=== PATIENT | male | born 1985 | race Caucasian/White ===

== ENCOUNTER 2017-03-14 13:04 | Emergency (ER) | payer BC ==
[2017-03-14 13:15] VITALS: BP 144/82; PULSE 85; TEMP 98; BMI 31.6
--- NOTE | 2017-03-14 13:55 | PDOC ---
History of Present Illness - General Chief Complaint: Pain Stated Complaint: RT THIGH PAIN Time Seen by Provider: 03/14/17 13:27 History Source: Patient Exam Limitations: No Limitations - History of Present Illness Initial Comments: 03/14/17 13:49 31 year old male with surgical history of inguinal hernia repair x 2, appendectomy and no medical history, present with pain to right groin radiating down right leg x 2 days. Patient admits to heavy lifting at work 3 days ago. States since then pain gradually getting worse. Denies bowel or bladder dysfunction. Occurred: reports: other (2 days) Severity: reports: moderate Pain Location: reports: lower extremity, pelvis Method of Injury: Yes: other (heavy lifting) Modifying Factors: improves with: immobilization Loss of Consciousness: no loss of consciousness Associated Symptoms (Fall): trouble walking Past History - Travel Traveled outside of the country in the last 30 days: No Close contact w/someone who was outside of country & ill: No - Past Medical History Allergies/Adverse Reactions: Allergies Allergy/AdvReac Type Severity Reaction Status Date / Time No Known Allergies Allergy Verified 03/14/17 13:11 Home Medications: Ambulatory Orders NK [No Known Home Medication] 03/14/17 Other medical history: DENIES. - Surgical History Abdominal Surgery: Yes (HERNIA) Appendectomy: Yes (06/2016) - Psycho/Social/Smoking Cessation Hx Suicidal Ideation: No Smoking History: Never smoked Trauma Specific PMHX - Complaint Specific PMHX Arthritis: No Back Injury: No Neck Injury: No Hx Sacro Iliac Joint Dysfunction: No Review of Systems - Review of Systems Able to Perform ROS?: Yes Is the patient limited Tanzanian proficient: No Constitutional: No: Chills, Diaphoresis, Fever, Night Sweats, Weakness, Weight Stable HEENTM: No: Double Vision, Ear Discharge, Nose Congestion, Hearing Loss Respiratory: No: Cough, Orthopnea, Shortness of Breath, Wheezing, Productive cough Cardiac (ROS): No: Chest Pain, Lightheadedness, Palpitations ABD/GI: No: Abdominal Distended, Poor Appetite, Indigestion Musculoskeletal: Yes: Muscle Pain, Joint Stiffness. No: Joint Pain Integumentary: No: See HPI, Bruising, Erythema Neurological: Yes: Numbness, Unsteady Gait. No: Headache Psychiatric: No: Frequent Crying *Physical Exam - Vital Signs Last Vital Signs Temp Pulse Resp BP Pulse Ox 98 F 85 21 144/82 100 03/14/17 13:11 03/14/17 13:11 03/14/17 13:11 03/14/17 13:11 03/14/17 13:11 - Physical Exam General Appearance: Yes: Nourished, Appropriately Dressed. No: Apparent Distress HEENT: positive: EOMI, MESHA, TMs Normal, Pharynx Normal Neck: negative: Lymphadenopathy (R), Lymphadenopathy (L) Respiratory/Chest: positive: Lungs Clear, Normal Breath Sounds. negative: Chest Tender Cardiovascular: positive: Regular Rhythm, Regular Rate, S1, S2 Gastrointestinal/Abdominal: positive: Normal Bowel Sounds, Other (tenderness with palpation to right groin area, no palpable node ) Male Genitalia: positive: inguinal hernia (scar from repair healed). negative: discharge Extremity: positive: Normal Capillary Refill Integumentary: positive: Normal Color Neurologic: positive: flap maker II-XII NML intact, Fully Oriented, Alert Medical Decision Making - Medical Decision Making 03/14/17 13:54 31 year old male with no medical history has surgical history of inguinal repair x 2 and appendectomy, has pain in right groin radiating into right leg. analgesia ordered urinalysis 03/14/17 14:55 signed out to YARON Maya
[2017-03-14] MEDS ORDERED: KETOROLAC TROMETHAMINE 30 MG/1 ML VIAL IM ONE (13:56)
[2017-03-14] MEDS ORDERED: KETOROLAC TROMETHAMINE 30 MG/1 ML VIAL ONE (14:00)
[2017-03-14 14:40] LABS: URINE APPEARANCE CLEAR; URINE BILIRUBIN NEGATIVE (NEGATIVE); URINE BLOOD NEGATIVE (NEGATIVE); URINE COLOR STRAW; URINE GLUCOSE (UA) NEGATIVE (NEGATIVE); URINE KETONE NEGATIVE (NEGATIVE); URINE LEUK ESTERASE NEGATIVE (NEGATIVE); URINE NITRITE NEGATIVE (NEGATIVE); URINE PROTEIN NEGATIVE (NEGATIVE); URINE UROBILINOGEN NEGATIVE mg/dL (0.2-1.0)
--- NOTE | 2017-03-14 15:03 | PDOC ---
*Physical Exam - Vital Signs Last Vital Signs Temp Pulse Resp BP Pulse Ox 98 F 85 21 144/82 100 03/14/17 13:11 03/14/17 13:11 03/14/17 13:11 03/14/17 13:11 03/14/17 13:11 ED Treatment Course - LABORATORY CBC & Chemistry Diagram: 03/14/17 15:45 03/14/17 16:45 - ADDITIONAL ORDERS Additional order review: Laboratory Results 03/14/17 14:20 Urine Color Straw Urine Appearance Clear Urine pH 8.0 Urine Protein Negative Urine Glucose (UA) Negative Urine Ketones Negative Urine Blood Negative Urine Nitrite Negative Urine Bilirubin Negative Urine Urobilinogen Negative - Medications Given in the ED: ED Medications Discontinued Medications Generic Name Dose Route Start Last Admin Trade Name Daylin PRN Reason Stop Dose Admin Ketorolac Tromethamine 30 mg 03/14/17 13:56 03/14/17 14:05 Toradol Injection - IM 03/14/17 13:57 30 mg ONCE ONE Administration Medical Decision Making - Medical Decision Making 03/14/17 15:03 Patient received from YARON Cabello. Briefly, this is a 31 year old male with a history of right inguinal hernia repair x 2 (age 6, age 10) and appendectomy ( Jun 2016, [facility]) who presents with right inguinal pain after heavy lifting. There is no palpable mass on exam, however there is right inguinal tenderness to gentle palpation. UA is negative. Hip xray shows no acute pathology. Pain is not relieved by Toradol. Will give morphine 4mg IVP and obtain CTAP with PO/IV contrast to evaluate for hernia as well as scrotal u/s to r/o torsion. Patient to be transferred to main ED for further evaluation and disposition. *DC/Admit/Observation/Transfer Diagnosis at time of Disposition: Leg pain, anterior Qualifiers: Laterality: right Qualified Code(s): M79.604 - Pain in right leg - Discharge Dispostion Disposition: HOME Condition at time of disposition: Stable - Prescriptions Prescriptions: Ketorolac Tromethamine [Toradol] 10 mg PO TID #15 tablet - Referrals Referrals: Joseph Feliciano MD [Staff Physician] - Talon Rosen MD [Staff Physician] - Simran Nelson MD [Primary Care Provider] - - Patient Instructions Additional Instructions: As per our discussion: While in the emergency Department you had a CAT scan of the abdomen and pelvis and it does not show any abnormality as discussed. He also had a x-ray of your right pelvis and hip, it is an unremarkable exam. Your ultrasound/scrotum and contents are normal. Please follow-up with the orthopedic surgeon/Dr. Feliciano And the general surgeon/Dr. Salas. Tylenol as needed return back to the emergency department for severe/persistent or worsening pain. - Post Discharge Activity
[2017-03-14] MEDS ORDERED: morphine CARPU-JECT 4 MG/1 ML DISP.SYRIN IVPUSH ONE (15:24)
[2017-03-14 16:29] LABS: BASOPHIL 0.4 % (0-2.0); EOSINOPHIL 0.2 % (0-4.5); MCH 26.5 pg (25.7-33.7); MCHC 32.6 g/dl (32.0-35.9); MEAN CELL VOLUME 81.1 fl (80-96); MEAN PLT VOLUME 10.4 fl (7.5-11.1); NEUTROPHILS 68.5 % (42.8-82.8); PLATELET COUNT 248 K/MM3 (134-434); RDW 14.8 % (11.9-15.9); WHITE BLOOD COUNT 13.4 K/mm3 (4.0-10.0)
[2017-03-14] MEDS ORDERED: morphine CARPU-JECT 4 MG/1 ML DISP.SYRIN ONE (16:46)
--- NOTE | 2017-03-14 17:03 | PDOC ---
History of Present Illness - General Chief Complaint: Pain Stated Complaint: RT THIGH PAIN Time Seen by Provider: 03/14/17 13:27 History Source: Patient Exam Limitations: No Limitations - History of Present Illness Travel History: No Initial Comments: 03/14/17 16:06 31-year-old male with progressively worsening right inguinal pain. 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 Patient states pain is worsened with ambulation and is unable to lift his leg up without causing discomfort. Patient states history of hernia repair 2 along with appendectomy. Patient has no complaints of testicular pain, dysuria, hematuria, back pain, skin rash, bruising to the area, or swelling to the area. Timing/Duration: reports: getting worse Quality: reports: moderate, severe Abdominal Pain Onset Location: reports: other (right inguinal) Pain Radiation: reports: other (rt upper leg) Activities at Onset: reports: exertion Aggravating Factors: improves with: Movement Alleviating Factors: improves with: Rest Past History - Travel Traveled outside of the country in the last 30 days: No - Past Medical History Allergies/Adverse Reactions: Allergies Allergy/AdvReac Type Severity Reaction Status Date / Time No Known Allergies Allergy Verified 03/14/17 13:11 Home Medications: Ambulatory Orders Ketorolac Tromethamine [Toradol] 10 mg PO TID #15 tablet 03/14/17 Other medical history: DENIES. - Surgical History Abdominal Surgery: Yes (HERNIA) Appendectomy: Yes (06/2016) - Psycho/Social/Smoking Cessation Hx Suicidal Ideation: No Smoking History: Never smoked Patient Lives Alone: No Lives with/in: spouse/SO Review of Systems - Review of Systems Able to Perform ROS?: Yes Constitutional: No: Symptoms Reported ABD/GI: No: Symptoms Reported Musculoskeletal: Yes: Joint Pain (right inguinal), Muscle Pain (right inguinal) Integumentary: No: Symptoms Reported Neurological: No: Symptoms reported Hematologic/Lymphatic: No: Symptoms Reported *Physical Exam - Vital Signs Last Vital Signs Temp Pulse Resp BP Pulse Ox 98 F 85 21 144/82 100 03/14/17 13:11 03/14/17 13:11 03/14/17 13:11 03/14/17 13:11 03/14/17 13:11 - Physical Exam General Appearance: Yes: Nourished, Appropriately Dressed. No: Apparent Distress HEENT: negative: Pale Conjunctivae Gastrointestinal/Abdominal: positive: Normal Bowel Sounds, Soft. negative: Distended, Tenderness Male Genitalia: positive: normal genitalia. negative: testicular tenderness (1 palpated), inguinal hernia Extremity: positive: Normal Capillary Refill, Tender (tender to the right inguinal . No palpable mass. Skin intact. No increased warmth). negative: Normal Range of Motion (unable to perform right straight leg raise. ), Pedal Edema Integumentary: positive: Normal Color, Warm, Moist Neurologic: positive: Motor Strength 5/5 (ambulatory but with limp) ED Treatment Course - LABORATORY CBC & Chemistry Diagram: 03/14/17 15:45 03/14/17 16:45 - ADDITIONAL ORDERS Additional order review: Laboratory Results 03/14/17 03/14/17 15:45 14:20 Sodium Cancelled Potassium Cancelled Chloride Cancelled Carbon Dioxide Cancelled Anion Gap Cancelled BUN Cancelled Creatinine Cancelled Creat Clearance w eGFR Cancelled Random Glucose Cancelled Calcium Cancelled Total Bilirubin Cancelled AST Cancelled ALT Cancelled Alkaline Phosphatase Cancelled Total Protein Cancelled Albumin Cancelled Urine Color Straw Urine Appearance Clear Urine pH 8.0 Urine Protein Negative Urine Glucose (UA) Negative Urine Ketones Negative Urine Blood Negative Urine Nitrite Negative Urine Bilirubin Negative Urine Urobilinogen Negative 03/14/17 15:45 RBC 5.58 MCV 81.1 MCHC 32.6 RDW 14.8 MPV 10.4 Neutrophils % 68.5 Lymphocytes % 23.6 Monocytes % 7.3 Eosinophils % 0.2 Basophils % 0.4 - Medications Given in the ED: ED Medications Discontinued Medications Generic Name Dose Route Start Last Admin Trade Name Freq PRN Reason Stop Dose Admin Ketorolac Tromethamine 30 mg 03/14/17 13:56 03/14/17 14:05 Toradol Injection - IM 03/14/17 13:57 30 mg ONCE ONE Administration Morphine Sulfate 4 mg 03/14/17 15:24 03/14/17 16:50 Morphine Injection - IVPUSH 03/14/17 15:25 4 mg ONCE ONE Administration Medical Decision Making - Medical Decision Making 03/14/17 17:12 Patient received in the main ED for further evaluation of right inguinal pain. Patient unable to ambulate without discomfort. Patient with likely right inguinal muscle strain versus tear. Patient ordered for CT due to history of recent appendectomy and inguinal hernia repairs. Patient also ordered for IV morphine from fast track nurse practitioner. *DC/Admit/Observation/Transfer Diagnosis at time of Disposition: Leg pain, anterior - Discharge Dispostion Disposition: HOME Condition at time of disposition: Stable - Prescriptions Prescriptions: Ketorolac Tromethamine [Toradol] 10 mg PO TID #15 tablet - Referrals Referrals: Joseph Feliciano MD [Staff Physician] - Talon Rosen MD [Staff Physician] - Simran Nelson MD [Primary Care Provider] - - Patient Instructions Additional Instructions: As per our discussion: While in the emergency Department you had a CAT scan of the abdomen and pelvis and it does not show any abnormality as discussed. He also had a x-ray of your right pelvis and hip, it is an unremarkable exam. Your ultrasound/scrotum and contents are normal. Please follow-up with the orthopedic surgeon/Dr. Feliciano And the general surgeon/Dr. Salas. Tylenol as needed return back to the emergency department for severe/persistent or worsening pain. - Post Discharge Activity
[2017-03-14 17:25] LABS: ALBUMIN 3.8 g/dl (3.4-5.0); ALK PHOS 92 U/L (45-117); ANION GAP 7 (8-16); BILIRUBIN,TOTAL 0.3 mg/dL (0.2-1.0); CALCIUM 9.4 mg/dL (8.5-10.1); CO2 27 mmol/L (21-32); CREATININE 0.9 mg/dL (0.7-1.3); GLUCOSE,RANDOM 106 mg/dL (74-106); SGOT/AST 13 U/L (15-37); SGPT/ALT 22 U/L (12-78)
[2017-03-14] MEDS ORDERED: ONDANSETRON 4 MG/2 ML VIAL IVPUSH ONE (20:13)
[2017-03-14] MEDS ORDERED: HYDROmorphone HCL CARPU-JECT 1 MG/1 ML DISP.SYRIN IVPUSH ONE (20:13)
[2017-03-14] MEDS ORDERED: HYDROmorphone HCL CARPU-JECT 1 MG/1 ML DISP.SYRIN ONE (20:32)
[2017-03-14] MEDS ORDERED: ONDANSETRON 4 MG/2 ML VIAL ONE (20:32)
--- NOTE | 2017-03-14 22:00 | PDOC ---
*Physical Exam - Vital Signs Last Vital Signs Temp Pulse Resp BP Pulse Ox 98 F 85 21 144/82 100 03/14/17 13:11 03/14/17 13:11 03/14/17 13:11 03/14/17 13:11 03/14/17 13:11 ED Treatment Course - LABORATORY CBC & Chemistry Diagram: 03/14/17 15:45 03/14/17 16:45 - ADDITIONAL ORDERS Additional order review: Laboratory Results 03/14/17 03/14/17 03/14/17 16:45 15:45 14:20 Sodium 140 Cancelled Potassium 3.9 Cancelled Chloride 106 Cancelled Carbon Dioxide 27 Cancelled Anion Gap 7 L Cancelled BUN 11 Cancelled Creatinine 0.9 Cancelled Creat Clearance w eGFR > 60 Cancelled Random Glucose 106 Cancelled Calcium 9.4 Cancelled Total Bilirubin 0.3 Cancelled AST 13 L Cancelled ALT 22 Cancelled Alkaline Phosphatase 92 Cancelled Total Protein 7.0 Cancelled Albumin 3.8 Cancelled Urine Color Straw Urine Appearance Clear Urine pH 8.0 Ur Specific Cannon 1.015 Urine Protein Negative Urine Glucose (UA) Negative Urine Ketones Negative Urine Blood Negative Urine Nitrite Negative Urine Bilirubin Negative Urine Urobilinogen Negative 03/14/17 15:45 RBC 5.58 MCV 81.1 MCHC 32.6 RDW 14.8 MPV 10.4 Neutrophils % 68.5 Lymphocytes % 23.6 Monocytes % 7.3 Eosinophils % 0.2 Basophils % 0.4 - RADIOLOGY Radiograph Interpretation: 03/14/17 21:57 CAT scan abdomen/pelvis with by mouth and IV contrast shows no definite CT abnormality. X-ray right pelvis/hip Unremarkable examination Ultrasound/scrotum and contents: Left testes demonstrates no Doppler evidence of torsion. A left sided varicocele is noted. Right hemiscrotum was not scanned on this limited exam. Patient has a history of right orchiectomy. - Medications Given in the ED: ED Medications Discontinued Medications Generic Name Dose Route Start Last Admin Trade Name Freq PRN Reason Stop Dose Admin Ketorolac Tromethamine 30 mg 03/14/17 13:56 03/14/17 14:05 Toradol Injection - IM 03/14/17 13:57 30 mg ONCE ONE Administration Morphine Sulfate 4 mg 03/14/17 15:24 03/14/17 16:50 Morphine Injection - IVPUSH 03/14/17 15:25 4 mg ONCE ONE Administration *DC/Admit/Observation/Transfer Diagnosis at time of Disposition: Pain of anterior lower extremity Qualifiers: Laterality: right Qualified Code(s): M79.604 - Pain in right leg - Discharge Dispostion Disposition: HOME Condition at time of disposition: Stable Admit: No - Referrals Referrals: Simran Nelson MD [Primary Care Provider] - Joseph Feliciano MD [Staff Physician] - Talon Rosen MD [Staff Physician] - - Patient Instructions Additional Instructions: As per our discussion: While in the emergency Department you had a CAT scan of the abdomen and pelvis and it does not show any abnormality as discussed. He also had a x-ray of your right pelvis and hip, it is an unremarkable exam. Your ultrasound/scrotum and contents are normal. Please follow-up with the orthopedic surgeon/Dr. Feliciano And the general surgeon/Dr. Salas. Tylenol as needed return back to the emergency department for severe/persistent or worsening pain. - Post Discharge Activity
== END 2017-03-14 22:10 | disposition home or self-care (01) ==
LOC: JER 13:04 → JERFT 13:04 → JER 22:10
PROC: 3E033NZ Introduction of Analgesics, Hypnotics, Sedatives into Peripheral Vein, Percutaneous Approach (ICD-10-PCS; principal; 2017-03-14)
PROC: 3E033GC Introduction of Other Therapeutic Substance into Peripheral Vein, Percutaneous Approach (ICD-10-PCS; 2017-03-14)
PROC: 3E0233Z Introduction of Anti-inflammatory into Muscle, Percutaneous Approach (ICD-10-PCS; 2017-03-14)
DX: M79.604 Pain in right leg (principal); R10.31 Right lower quadrant pain
CPT/HCPCS: 36415; 73523-TC; 74177-TC; 76870-TC; 80053; 81003; 85025; 99282-25; Q9967